=== PATIENT | male | born 1990 | race Caucasian/White ===

== ENCOUNTER 2025-02-08 20:10 | Emergency (ER) | payer BC ==
[2025-02-08] MEDS: Fluorescein 1 MG Ophth Strip EYEBOTH STA (20:56)
== END 2025-02-08 21:17 | disposition home or self-care (01) ==
LOC: JD.ED 20:10
DX: H16.133 Photokeratitis, bilateral (principal); W89.0XXA Exposure to welding light (arc), initial encounter
CPT/HCPCS: 99283; J3490